=== PATIENT | male | born 1955 | race Caucasian/White ===

== ENCOUNTER → 2017-03-07 08:06 | Outpatient (CLI) | payer MEDICARE, OTHER | END | disposition home or self-care (01) | LOC: D.US 08:06 | DX: R11.2 Nausea with vomiting, unspecified (principal); R19.7 Diarrhea, unspecified ==

== ENCOUNTER 2017-03-17 09:42 | Emergency (ER) | payer MEDICARE, OTHER | END 2017-03-17 12:56 | disposition home or self-care (01) | LOC: D.ER 09:42 | DX: F07.81 Postconcussional syndrome (principal); L50.9 Urticaria, unspecified; F17.200 Nicotine dependence, unspecified, uncomplicated ==

== ENCOUNTER → 2017-10-16 12:25 | Outpatient (CLI) | payer MEDICARE, OTHER | END | disposition home or self-care (01) | LOC: D.MRI 12:25 | DX: M54.16 Radiculopathy, lumbar region (principal) ==